=== PATIENT | female | born 1975 | race Two or more races ===

== ENCOUNTER 2021-07-25 04:18 | Inpatient (IN) | payer OTHER ==
[2021-07-24 08:25] VITALS: BMI 32.1
[2021-07-25] MEDS ORDERED: TRANEXAMIC ACID 1000 MG/10 ML VIAL IVPUSH ONE (06:30)
[2021-07-25] MEDS ORDERED: GABAPENTIN 250 MG/5 ML ORAL SOLUTION, 470 ML BOTTLE PO ONE (06:30)
[2021-07-25] MEDS ORDERED: ACETAMINOPHEN 1000 MG/100 ML BAG IVPB ONE (06:30)
[2021-07-25] MEDS ORDERED: CEFAZOLIN 2 GM in SODIUM CHLORIDE 100 ML IVPB ONE (06:30)
[2021-07-25] MEDS ORDERED: GABAPENTIN 300 MG CAPSULE ONE (06:50)
[2021-07-25] MEDS ORDERED: ceFAZolin SODIUM 1 GM VIAL ONE ×4 (06:50→23:35)
[2021-07-25] MEDS ORDERED: BUPIVACAINE LIPOSOME/PF (EXPAREL) 266 MG/20 ML VIAL ONE (07:12)
[2021-07-25] MEDS ORDERED: BUPIVACAINE HCL/PF 0.5% (5MG/ML) 10 ML VIAL ONE (07:12)
[2021-07-25] MEDS ORDERED: DEXAMETHASONE SOD PHOSPHATE 4 MG/1 ML VIAL ONE (07:22)
[2021-07-25] MEDS ORDERED: LIDOCAINE HCL/PF 2% SDV 5ML VIAL ONE (07:22)
[2021-07-25] MEDS ORDERED: MIDAZOLAM HCL 2 MG/2 ML SINGLE DOSE VIAL ONE ×3 (07:23→07:58)
[2021-07-25] MEDS ORDERED: PROPOFOL 20 ML ONE (07:23)
[2021-07-25] MEDS ORDERED: SUCCINYLCHOLINE CHLORIDE 200 MG/10 ML SYRINGE ONE (07:24)
[2021-07-25] MEDS ORDERED: ROCURONIUM BROMIDE 50 MG/5 ML SYRINGE ONE (07:24)
[2021-07-25] MEDS ORDERED: ceFAZolin SODIUM 1 GM VIAL IVPB ONE (08:25)
[2021-07-25] MEDS ORDERED: TRANEXAMIC ACID 1000 MG/10 ML VIAL ONE (08:36)
[2021-07-25 08:38] LABS: PH,URINE 7.5 (5.0-8.0); URINE APPEARANCE CLEAR; URINE BILIRUBIN NEGATIVE (NEGATIVE); URINE COLOR YELLOW; URINE GLUCOSE (UA) NEGATIVE (NEGATIVE); URINE KETONE NEGATIVE (NEGATIVE); URINE LEUK ESTERASE NEGATIVE (NEGATIVE); URINE NITRITE NEGATIVE (NEGATIVE); URINE PROTEIN NEGATIVE (NEGATIVE); URINE UROBILINOGEN 0.2 mg/dL (0.2-1.0)
[2021-07-25] MEDS ORDERED: KETOROLAC TROMETHAMINE 30 MG/1 ML VIAL ONE (09:45)
[2021-07-25] MEDS ORDERED: ONDANSETRON 4 MG/2 ML VIAL IVPUSH PRN (10:25)
[2021-07-25] MEDS ORDERED: BISACODYL 5 MG TABLET.DR (FP) PO PRN (10:25)
[2021-07-25] MEDS ORDERED: SIMETHICONE 80 MG TAB.CHEW (FP) PO PRN (10:25)
[2021-07-25] MEDS ORDERED: DOCUSATE SODIUM 100 MG CAPSULE (FP) PO PRN (10:25)
[2021-07-25] MEDS ORDERED: oxyCODONE HCL 5 MG TABLET PO PRN ×2 (10:25)
[2021-07-25] MEDS ORDERED: LACTATED RINGERS SOLUTION 1,000 ML IV SCH (10:45)
[2021-07-25] MEDS ORDERED: DEXTROSE 5%-WATER - 50 ML IVPB ONE ×2 (14:54→23:35)
[2021-07-25] MEDS: ACETAMINOPHEN 1000 MG/100 ML BAG IVPB SCH ×2 (15:53→22:07)
[2021-07-25] MEDS ORDERED: CEFAZOLIN 1 GM in DEXTROSE 5%-WATER - 1 GM/50 ML IVPB IVPB SCH (16:00)
[2021-07-25] MEDS: IBUPROFEN 800 MG/8 ML IJ IVPB SCH (17:39)
[2021-07-25 18:32] LABS: HEMATOCRIT 33.4 % (32.4-45.2); MCH 26.8 pg (25.7-33.7); MCHC 33.1 g/dl (32.0-36.0); MEAN CELL VOLUME 80.8 fl (80-96); MEAN PLT VOLUME 9.4 fl (7.5-11.1); PLATELET COUNT 195 10^3/uL (134-434); RBC 4.13 M/mm3 (3.60-5.2); WHITE BLOOD COUNT 13.3 K/mm3 (4.0-10.0)
[2021-07-25 18:51] LABS: CALCIUM 8.5 mg/dL (8.5-10.1)
[2021-07-25 18:53] LABS: BLOOD UREA NITROGEN 8.8 mg/dL (7-18)
[2021-07-25 18:56] LABS: CREATININE 0.7 mg/dL (0.55-1.3)
[2021-07-25] MEDS: CEFAZOLIN 1 GM in DEXTROSE 5%-WATER - 1 GM/50 ML IVPB IVPB SCH (23:37)
[2021-07-26] MEDS: IBUPROFEN 800 MG/8 ML IJ IVPB SCH ×2 (01:50→09:44)
[2021-07-26] MEDS: ACETAMINOPHEN 1000 MG/100 ML BAG IVPB SCH (05:22)
[2021-07-26] MEDS ORDERED: DEXTROSE 5%-WATER - 50 ML IVPB ONE (06:16)
[2021-07-26] MEDS ORDERED: ceFAZolin SODIUM 1 GM VIAL ONE (06:16)
[2021-07-26] MEDS: CEFAZOLIN 1 GM in DEXTROSE 5%-WATER - 1 GM/50 ML IVPB IVPB SCH (06:59)
[2021-07-26 09:26] LABS: HEMATOCRIT 29.5 % (32.4-45.2); HEMOGLOBIN 9.8 GM/dL (10.7-15.3); MCH 27.2 pg (25.7-33.7); MCHC 33.4 g/dl (32.0-36.0); MEAN CELL VOLUME 81.6 fl (80-96); MEAN PLT VOLUME 10.2 fl (7.5-11.1); PLATELET COUNT 159 10^3/uL (134-434); RBC 3.62 M/mm3 (3.60-5.2); RDW 17.6 % (11.6-15.6); WHITE BLOOD COUNT 8.9 K/mm3 (4.0-10.0)
[2021-07-26] MEDS: ENOXAPARIN NA (PORCINE) 40 MG/0.4 ML DISP.SYRIN SQ SCH (09:44)
[2021-07-26 09:51] LABS: CALCIUM 8.7 mg/dL (8.5-10.1)
[2021-07-26 09:53] LABS: BLOOD UREA NITROGEN 6.1 mg/dL (7-18)
[2021-07-26 09:55] LABS: CREATININE 0.6 mg/dL (0.55-1.3)
[2021-07-26] MEDS: CHLORTHALIDONE 25 MG TABLET PO SCH (10:57)
[2021-07-26] MEDS ORDERED: ACETAMINOPHEN 325 MG TABLET (FP) PO PRN (16:00)
[2021-07-27] MEDS ORDERED: ACETAMINOPHEN 650 MG/20.3 ML ORAL SOLUTION (CUPS) PO PRN (00:01)
[2021-07-27] MEDS: CHLORTHALIDONE 25 MG TABLET PO SCH (09:58)
[2021-07-27] MEDS: ENOXAPARIN NA (PORCINE) 40 MG/0.4 ML DISP.SYRIN SQ SCH (09:58)
[2021-07-27] MEDS ORDERED: PATIENT'S OWN MEDICATION (NON-FORMULARY) (Iron,Carb/Vit C/Vit B12/Folic [Iron 100 Plus Tab PO SCH (10:00)
[2021-07-27] MEDS ORDERED: PATIENT'S OWN MEDICATION (NON-FORMULARY) (Mv-Mn/Iron/Folic Acid/Herb 190 [Vitamin D3 Compl PO SCH (10:00)
[2021-07-27 10:21] VITALS: BP 128/72; PULSE 82; TEMP 98
== END 2021-07-27 13:30 | disposition home or self-care (01) | DRG 743 ==
LOC: J2C 04:18 → J3W 13:11
PROVIDERS: ADMIT Obstetrics & Gynecology; ATTEND Obstetrics & Gynecology
PROC: 0UT70ZZ Resection of Bilateral Fallopian Tubes, Open Approach (ICD-10-PCS; 2021-07-25)
PROC: 0UB10ZZ Excision of Left Ovary, Open Approach (ICD-10-PCS; 2021-07-25)
PROC: 0UT90ZZ Resection of Uterus, Open Approach (ICD-10-PCS; principal; 2021-07-25 07:30)
DX: D25.9 Leiomyoma of uterus, unspecified (principal); N83.202 Unspecified ovarian cyst, left side
CPT/HCPCS: 36415; 80048; 81003; 81025; 85027; 86850; 86900; 86901; 88302-TC; 88304-TC; 88305-TC; 88307-TC; 94010; 94760

== ENCOUNTER 2023-01-29 23:47 | Emergency (ER) | payer OTHER ==
[2023-01-30 00:02] VITALS: BP 176/81; PULSE 67; RESP 18; TEMP 98.6; BMI 36.8
[2023-01-30] MEDS ORDERED: metroNIDAZOLE 250 MG TABLET PO ONE (01:14)
[2023-01-30] MEDS ORDERED: metroNIDAZOLE 250 MG TABLET ONE (01:31)
[2023-01-30] MEDS ORDERED: KETOROLAC TROMETHAMINE 30 MG/1 ML VIAL IM ONE (01:45)
[2023-01-30] MEDS ORDERED: KETOROLAC TROMETHAMINE 30 MG/1 ML VIAL ONE (01:46)
== END 2023-01-30 02:58 | disposition home or self-care (01) ==
LOC: JER 23:47
PROC: 3E0233Z Introduction of Anti-inflammatory into Muscle, Percutaneous Approach (ICD-10-PCS; principal; 2023-01-30)
DX: K08.89 Other specified disorders of teeth and supporting structures (principal); R51.9 Headache, unspecified; R68.84 Jaw pain
CPT/HCPCS: 70140-TC-FY; 84703; 93005; 93010; 99285-25